=== PATIENT | male | born 1950 | race Caucasian/White ===

== ENCOUNTER 2018-02-07 19:39 | Emergency (ER) | payer MEDICARE, MEDICAID ==
[~2018-02-07] VITALS: Ht 203.2 cm; Wt 118.0 kg
[2018-02-07] MEDS ORDERED: SODIUM CHLORIDE 0.9% 1,000 ML IV ONE (21:17)
[2018-02-07] MEDS ORDERED: DIPHENHYDRAMINE 50MG/ML VIAL IV ONE (21:30)
[2018-02-07 23:25] LABS: BASOPHILS % 1.3 % (0.0-2.0); EOSINOPHILS % 11.7 % (0.0-5.0); HEMATOCRIT. 39.4 % (42.0-52.0); HEMOGLOBIN. 13.6 g/dL (14.0-18.0); MEAN CORPUSCULAR HEMOGLOBIN 32.7 pg (28.0-32.0); MEAN CORPUSCULAR VOLUME 95.1 fL (80.0-94.0); MEAN PLATELET VOLUME 8.3 fl (7.4-10.4); MONOCYTES % 11.4 % (2.0-8.0); NEUTROPHILS % 55.6 % (40.0-76.0); PLATELET 200 x1000/uL (130-400); RED BLOOD CELL COUNT 4.14 mill/uL (4.7-6.1); RED CELL DISTRIBUTION WIDTH 12.7 % (11.6-14.6)
[2018-02-07 23:28] LABS: CHLORIDE 108 mEq/L (98-107)
[2018-02-07 23:32] LABS: PARTIAL THROMBOPLASTIN TIME 28.3 sec (23.4-31.0); PROTHROMBIN TIME 10.4 sec (9.1-11.1)
[2018-02-08 00:59] LABS: CLARITY URINE CLEAR (CLEAR); COLOR URINE YELLOW (YELLOW); KETONES URINE NEGATIVE (NEGATIVE); LEUKOCYTE ESTERASE URINE 1+ (NEGATIVE); NITRITE URINE NEGATIVE (NEGATIVE); OCCULT BLOOD URINE NEGATIVE (NEGATIVE); PH URINE 5.5 (4.5-8.0); PROTEIN URINE NEGATIVE (NEGATIVE)
[2018-02-08 03:30] VITALS: BP 130/76
== END 2018-02-08 04:16 | disposition home or self-care (01) ==
LOC: ER 19:39
DX: R21 Rash and other nonspecific skin eruption (principal); N39.0 Urinary tract infection, site not specified
CPT/HCPCS: 36415; 80053; 81003; 85025; 85610; 85730; 96374; 99285; J1200; J7030; A4315

== ENCOUNTER 2019-04-08 16:21 | Emergency (ER) | payer MEDICARE, MEDICAID ==
[~2019-04-08] VITALS: Ht 203.2 cm; Wt 113.0 kg
[2019-04-08 21:42] VITALS: BP 130/78
== END 2019-04-08 21:56 | disposition home or self-care (01) ==
LOC: ER 16:21
DX: S62.615A Displaced fracture of proximal phalanx of left ring finger, initial encounter for closed fracture (principal); S62.617A Displaced fracture of proximal phalanx of left little finger, initial encounter for closed fracture; W19.XXXA Unspecified fall, initial encounter; Y93.9 Activity, unspecified; Y92.128 Other place in nursing home as the place of occurrence of the external cause; I69.398 Other sequelae of cerebral infarction; G31.9 Degenerative disease of nervous system, unspecified; G93.89 Other specified disorders of brain
CPT/HCPCS: 73130; 99284

== ENCOUNTER 2022-12-15 19:10 | Inpatient (IN) | payer MEDICARE, MEDICAID ==
[~2022-12-15] VITALS: Ht 203.2 cm; Wt 115.3 kg
[2022-12-15] MEDS ORDERED: ACETAMINOPHEN 325MG TABLET PO ONE (22:30)
[2022-12-15 23:51] LABS: CLARITY URINE CLOUDY (CLEAR); COLOR URINE DARK YELLOW (YELLOW); GLUCOSE URINE NEGATIVE (NEGATIVE); KETONES URINE TRACE (NEGATIVE); LEUKOCYTE ESTERASE URINE 2+ (NEGATIVE); NITRITE URINE POSITIVE (NEGATIVE); OCCULT BLOOD URINE 3+ (NEGATIVE); PH URINE 5.5 (4.5-8.0); PROTEIN URINE 1+ (NEGATIVE); SPECIFIC GRAVITY URINE 1.033 (1.005-1.030)
[2022-12-16] VITALS (7 sets, daily range): BP systolic 111–148; BP diastolic 71–92; PULSE 41–96; RESP 17–22; TEMP 97.6–99.7
[2022-12-16 00:01] LABS: HEMATOCRIT. 42.6 % (42.0-52.0); HEMOGLOBIN. 14.5 g/dL (14.0-18.0); MEAN CORPUSCULAR HEMOGLOBIN 32.8 pg (28.0-32.0); MEAN CORPUSCULAR HGB CONC 34.1 g/dL (31.0-37.0); MEAN CORPUSCULAR VOLUME 96.1 fL (80.0-94.0); PLATELET 178 x1000/uL (130-400); RED BLOOD CELL COUNT 4.43 mill/uL (4.7-6.1); RED CELL DISTRIBUTION WIDTH 12.5 % (11.6-14.6); WHITE BLOOD COUNT 20.9 x1000/uL (4.5-11.0)
[2022-12-16 00:03] LABS: DIFFERENTIAL COMMENT 1
[2022-12-16 00:08] LABS: BACTERIA URINE 3+
[2022-12-16 00:08] LABS: INR 1.1; PROTHROMBIN TIME 11.7 sec (9.6-11.0)
[2022-12-16 00:09] LABS: SQUAMOUS EPITHELIAL CELL URINE FEW /lpf (RARE/1+); WBC URINE 15-25 /hpf (0-2)
[2022-12-16 00:10] LABS: CHLORIDE 107 mEq/L (98-107); INDEX HEMOLYSI 1 (1-3); INDEX ICTERIC 1 (1-4); INDEX LIPEMIC 1 (1-3); POTASSIUM 3.5 mEq/L (3.5-5.1); SODIUM 137 mEq/L (136-145)
[2022-12-16 00:24] LABS: *AMPHETAMINES SCREEN URINE NEGATIVE (NEGATIVE); *BARBITURATES SCREEN URINE NEGATIVE (NEGATIVE); *BENZODIAZEPINES SCREEN URINE NEGATIVE (NEGATIVE); *COCAINE SCREEN URINE NEGATIVE (NEGATIVE); CANNABINOID URINE SCREEN NEGATIVE (NEGATIVE); ECSTASY MDMA SCREEN URINE NEGATIVE (NEGATIVE); METHADONE URINE SCREEN NEGATIVE (NEGATIVE); OPIATES URINE SCREEN NEGATIVE (NEGATIVE); PHENCYCLIDINE URINE SCREEN NEGATIVE (NEGATIVE)
[2022-12-16 00:30] LABS: ALANINE AMINOTRANSFERASE 37 IU/L (13-61); ALBUMIN 3.7 g/dL (3.4-5.0); ASPARTATE AMINOTRANSFERASE 113 IU/L (15-37); BILIRUBIN TOTAL 1.4 mg/dL (0.1-1.0); CALCIUM 9.1 mg/dL (8.5-10.1); CARBON DIOXIDE 22 mEq/L (21-32); CREATINE KINASE 2919 IU/L (39-308); CREATININE 1.2 mg/dL (0.6-1.3); ETHANOL BLOOD < 10 mg/dL (-10); GLUCOSE 133 mg/dL (70-105); TROPONIN I HIGH SENSITIVITY 28 ng/L (<78); UREA NITROGEN BLOOD 23 mg/dL (7-21)
[2022-12-16] MEDS ORDERED: CEFTRIAXONE 1GM PREMIX 50 ML IV NR (00:45)
[2022-12-16] MEDS ORDERED: SODIUM CHLORIDE 0.9% 1,000 ML IV ONE (01:15)
[2022-12-16 02:11] LABS: PLATELET ESTIMATE NORMAL
[2022-12-16] MEDS ORDERED: IPRATROPIUM/ALBUTEROL 0.5-3(2.5)MG/3ML NEB HHN PRN (05:45)
[2022-12-16] MEDS ORDERED: HYDROCODONE/ACETAMINOPHEN 5/325MG TABLET PO PRN (05:45)
[2022-12-16] MEDS ORDERED: ACETAMINOPHEN 325MG TABLET PO PRN (05:45)
[2022-12-16] MEDS ORDERED: AMAN100T PO (06:00)
[2022-12-16] MEDS ORDERED: NON FORMULARY PATIENT HOME MED XX SCH ×4 (06:00)
[2022-12-16] MEDS ORDERED: MULT-1146 PO (06:00)
[2022-12-16] MEDS ORDERED: SIMV-43 PO (06:00)
[2022-12-16] MEDS ORDERED: LAMO200T50 PO (06:00)
[2022-12-16] MEDS ORDERED: OLAN10TA6 PO (06:00)
[2022-12-16] MEDS ORDERED: FAMO-135 PO (06:00)
[2022-12-16] MEDS ORDERED: LEVO50TA8 PO (06:00)
[2022-12-16 06:42] LABS: HEMOGLOBIN. 13.7 g/dL (14.0-18.0); MEAN CORPUSCULAR HEMOGLOBIN 33.2 pg (28.0-32.0); MEAN CORPUSCULAR VOLUME 94.7 fL (80.0-94.0); MEAN PLATELET VOLUME 8.7 fl (7.4-10.4); PLATELET 172 x1000/uL (130-400); RED BLOOD CELL COUNT 4.12 mill/uL (4.7-6.1); RED CELL DISTRIBUTION WIDTH 12.5 % (11.6-14.6); WHITE BLOOD COUNT 18.6 x1000/uL (4.5-11.0)
[2022-12-16 07:16] LABS: DIFFERENTIAL COMMENT 1
[2022-12-16 07:37] LABS: CHLORIDE 109 mEq/L (98-107); INDEX HEMOLYSI 1 (1-3); INDEX ICTERIC 1 (1-4); INDEX LIPEMIC 1 (1-3); POTASSIUM 3.5 mEq/L (3.5-5.1); SODIUM 138 mEq/L (136-145)
[2022-12-16 07:45] LABS: CALCIUM 8.7 mg/dL (8.5-10.1); CARBON DIOXIDE 23 mEq/L (21-32); CREATININE 1.1 mg/dL (0.6-1.3); GLUCOSE 111 mg/dL (70-105); UREA NITROGEN BLOOD 23 mg/dL (7-21)
[2022-12-16] MEDS: IPRATROPIUM/ALBUTEROL 0.5-3(2.5)MG/3ML NEB HHN SCH ×3 (08:40→16:55)
[2022-12-16] MEDS ORDERED: LEVOTHYROXINE SODIUM 50MCG TABLET PO SCH (09:00)
[2022-12-16 09:16] LABS: PLATELET ESTIMATE NORMAL
[2022-12-16] MEDS: OLANZAPINE 5MG TABLET ODT PO SCH (10:38)
[2022-12-16] MEDS: AMANTADINE HCL 100 MG CAPSULE PO SCH (10:39)
[2022-12-16] MEDS: MULTIVITAMINS,THER W-MINERALS TABLET PO SCH (10:39)
[2022-12-16] MEDS: ENOXAPARIN 30MG/0.3ML SYR SUBCUT SCH ×2 (12:02→20:50)
[2022-12-16] MEDS: LAMOTRIGINE 100MG TABLET PO SCH ×2 (12:18→20:50)
[2022-12-16] MEDS: TAMSULOSIN HCL 0.4MG SR CAPSULE PO SCH (12:19)
[2022-12-16] MEDS ORDERED: NALOXONE HCL 0.4MG/ML VIAL IV PRN (15:15)
[2022-12-16] MEDS ORDERED: ICOS1CAP PO (18:24)
[2022-12-16] MEDS ORDERED: PERP16TA5 PO (18:24)
[2022-12-16] MEDS ORDERED: TRIH2TAB4 PO (18:24)
[2022-12-16] MEDS ORDERED: IBUP-2029 PO (18:24)
[2022-12-16] MEDS: FAMOTIDINE 20MG TABLET PO SCH (20:51)
[2022-12-16] MEDS: ATORVASTATIN CALCIUM 10MG TABLET PO SCH (20:51)
[2022-12-17] VITALS (12 sets, daily range): BP systolic 112–142; BP diastolic 69–83; PULSE 57–81; RESP 18–20; TEMP 96.8–97.6; O2SAT 93–95
[2022-12-17] MEDS: IPRATROPIUM/ALBUTEROL 0.5-3(2.5)MG/3ML NEB HHN SCH ×7 (00:07→21:09)
[2022-12-17] MEDS: CEFTRIAXONE 1,000 MG in DEXTROSE 5% WATER 50 ML IV SCH (00:53)
[2022-12-17] MEDS ORDERED: CEFTRIAXONE 1GM PREMIX 50 ML IV SCH (01:00)
[2022-12-17 06:54] LABS: BASOPHILS % 0.5 % (0.0-2.0); EOSINOPHILS % 1.8 % (0.0-5.0); HEMATOCRIT. 38.1 % (42.0-52.0); HEMOGLOBIN. 13.3 g/dL (14.0-18.0); LYMPHOCYTES % 10.2 % (20.0-50.0); MEAN CORPUSCULAR HEMOGLOBIN 33.4 pg (28.0-32.0); MEAN CORPUSCULAR HGB CONC 34.8 g/dL (31.0-37.0); MEAN CORPUSCULAR VOLUME 95.7 fL (80.0-94.0); MEAN PLATELET VOLUME 8.8 fl (7.4-10.4); MONOCYTES % 10.5 % (2.0-8.0); PLATELET 177 x1000/uL (130-400); RED BLOOD CELL COUNT 3.97 mill/uL (4.7-6.1); RED CELL DISTRIBUTION WIDTH 12.6 % (11.6-14.6); WHITE BLOOD COUNT 11.9 x1000/uL (4.5-11.0)
[2022-12-17 07:50] LABS: CALCIUM 8.3 mg/dL (8.5-10.1); CHLORIDE 110 mEq/L (98-107); INDEX HEMOLYSI 1 (1-3); INDEX ICTERIC 1 (1-4); INDEX LIPEMIC 1 (1-3); POTASSIUM 3.5 mEq/L (3.5-5.1); SODIUM 135 mEq/L (136-145)
[2022-12-17 07:54] LABS: CARBON DIOXIDE 25 mEq/L (21-32); GLUCOSE 110 mg/dL (70-105); UREA NITROGEN BLOOD 23 mg/dL (7-21)
[2022-12-17] MEDS: AMANTADINE HCL 100 MG CAPSULE PO SCH (08:12)
[2022-12-17] MEDS: MULTIVITAMINS,THER W-MINERALS TABLET PO SCH (08:12)
[2022-12-17] MEDS: TAMSULOSIN HCL 0.4MG SR CAPSULE PO SCH (08:13)
[2022-12-17] MEDS: LAMOTRIGINE 100MG TABLET PO SCH ×2 (08:13→21:28)
[2022-12-17] MEDS: LEVOTHYROXINE SODIUM 50MCG TABLET PO SCH (08:14)
[2022-12-17] MEDS: OLANZAPINE 5MG TABLET ODT PO SCH (08:15)
[2022-12-17] MEDS: ENOXAPARIN 30MG/0.3ML SYR SUBCUT SCH ×2 (08:16→21:29)
[2022-12-17] MEDS: FAMOTIDINE 20MG TABLET PO SCH (21:28)
[2022-12-17] MEDS: ATORVASTATIN CALCIUM 10MG TABLET PO SCH (21:28)
[2022-12-18] VITALS (11 sets, daily range): BP systolic 105–135; BP diastolic 54–93; PULSE 71–98; RESP 18–22; TEMP 97–98.1; O2SAT 97
[2022-12-18] MEDS: IPRATROPIUM/ALBUTEROL 0.5-3(2.5)MG/3ML NEB HHN SCH ×5 (00:29→15:43)
[2022-12-18] MEDS: CEFTRIAXONE 1,000 MG in DEXTROSE 5% WATER 50 ML IV SCH (01:29)
[2022-12-18] MEDS: LEVOTHYROXINE SODIUM 50MCG TABLET PO SCH (07:24)
[2022-12-18] MEDS: AMANTADINE HCL 100 MG CAPSULE PO SCH (08:11)
[2022-12-18] MEDS: MULTIVITAMINS,THER W-MINERALS TABLET PO SCH (08:11)
[2022-12-18] MEDS: LAMOTRIGINE 100MG TABLET PO SCH (08:12)
[2022-12-18] MEDS: OLANZAPINE 5MG TABLET ODT PO SCH (08:14)
[2022-12-18] MEDS: TAMSULOSIN HCL 0.4MG SR CAPSULE PO SCH (08:14)
[2022-12-18] MEDS: ENOXAPARIN 30MG/0.3ML SYR SUBCUT SCH (08:15)
== END 2022-12-18 18:00 | DRG 720 ==
LOC: ER 19:10 → EDBEDREQSVC 12-16 01:40 → EDBEDREQ 12-16 01:40 → 7WST 12-16 05:04
PROVIDERS: ADMIT Internal Medicine; ATTEND Internal Medicine
DX: A41.9 Sepsis, unspecified organism (principal); J96.00 Acute respiratory failure, unspecified whether with hypoxia or hypercapnia; J18.9 Pneumonia, unspecified organism; N39.0 Urinary tract infection, site not specified; F20.9 Schizophrenia, unspecified; K21.9 Gastro-esophageal reflux disease without esophagitis; F03.90 Unspecified dementia, unspecified severity, without behavioral disturbance, psychotic disturbance, mood disturbance, and anxiety; E03.9 Hypothyroidism, unspecified; Z86.73 Personal history of transient ischemic attack (TIA), and cerebral infarction without residual deficits; W18.30XA Fall on same level, unspecified, initial encounter; Y93.89 Activity, other specified; Y92.89 Other specified places as the place of occurrence of the external cause; Y99.8 Other external cause status
CPT/HCPCS: 36415; 71045; 80048; 80053; 80305; 80320; 81003; 82550; 83605; 84145; 84484; 85025; 86850; 86900; 87077; 87186; 93005; 94640; 99291; A6261; J0696; J1650; J7060; G0480

== ENCOUNTER 2023-01-06 22:34 | Emergency (ER) | payer MEDICARE, MEDICAID ==
[~2023-01-06] VITALS: Ht 193 cm; Wt 109.0 kg
[~2023-01-06 22:34] MED LIST: AMAN100T PO; FAMO-135 PO; IBUP-2029 PO; ICOS1CAP PO; LAMO200T50 PO; LEVO50TA8 PO; MULT-1146 PO; OLAN10TA6 PO; PERP16TA5 PO; SIMV-43 PO; TRIH2TAB4 PO
[2023-01-06 22:38] VITALS: O2SAT 96
[2023-01-06 23:07] LABS: EOSINOPHILS % 3.9 % (0.0-5.0); HEMATOCRIT. 38.5 % (42.0-52.0); HEMOGLOBIN. 13.4 g/dL (14.0-18.0); LYMPHOCYTES % 25.4 % (20.0-50.0); MEAN CORPUSCULAR HEMOGLOBIN 32.6 pg (28.0-32.0); MEAN CORPUSCULAR HGB CONC 34.8 g/dL (31.0-37.0); MEAN CORPUSCULAR VOLUME 93.7 fL (80.0-94.0); MEAN PLATELET VOLUME 8.3 fl (7.4-10.4); MONOCYTES % 10.1 % (2.0-8.0); NEUTROPHILS % 59.6 % (40.0-76.0); PLATELET 245 x1000/uL (130-400); RED BLOOD CELL COUNT 4.11 mill/uL (4.7-6.1); RED CELL DISTRIBUTION WIDTH 12.4 % (11.6-14.6); WHITE BLOOD COUNT 6.7 x1000/uL (4.5-11.0)
[2023-01-06 23:20] LABS: CHLORIDE 111 mEq/L (98-107); INDEX HEMOLYSI 1 (1-3); INDEX ICTERIC 1 (1-4); INDEX LIPEMIC 1 (1-3); POTASSIUM 3.7 mEq/L (3.5-5.1); SODIUM 141 mEq/L (136-145)
[2023-01-06 23:28] LABS: ALANINE AMINOTRANSFERASE 20 IU/L (13-61); ALBUMIN 3.4 g/dL (3.4-5.0); ASPARTATE AMINOTRANSFERASE 11 IU/L (15-37); BILIRUBIN TOTAL 0.4 mg/dL (0.1-1.0); CALCIUM 8.7 mg/dL (8.5-10.1); CARBON DIOXIDE 27 mEq/L (21-32); CREATININE 1.1 mg/dL (0.6-1.3); GLUCOSE 104 mg/dL (70-105); NT PRO B-TYPE NATRIURETIC PEP 73 pg/mL (5-125); PROTEIN TOTAL 7.1 g/dL (6.0-8.3); UREA NITROGEN BLOOD 14 mg/dL (7-21)
[2023-01-07] MEDS ORDERED: ONDANSETRON HCL 4MG/2ML INJ IV ONE (02:30)
[2023-01-07 06:14] LABS: CLARITY URINE CLOUDY (CLEAR); COLOR URINE YELLOW (YELLOW); GLUCOSE URINE NEGATIVE (NEGATIVE); KETONES URINE NEGATIVE (NEGATIVE); LEUKOCYTE ESTERASE URINE 3+ (NEGATIVE); NITRITE URINE POSITIVE (NEGATIVE); OCCULT BLOOD URINE NEGATIVE (NEGATIVE); PROTEIN URINE NEGATIVE (NEGATIVE); SPECIFIC GRAVITY URINE 1.011 (1.005-1.030)
[2023-01-07] MEDS ORDERED: CEFD300C3 MT (07:00)
[2023-01-07] MEDS ORDERED: CEFTRIAXONE SODIUM 1 G/VIAL IM ONE (07:00)
[2023-01-07] MEDS ORDERED: ONDA4TAB50 MT (07:00)
[2023-01-07] MEDS ORDERED: TOPUD MT (07:00)
[2023-01-07 07:27] LABS: BACTERIA URINE 3+; RBC URINE NONE SEEN /hpf (0-2); SQUAMOUS EPITHELIAL CELL URINE NONE SEEN /lpf (RARE/1+); WBC URINE 15-25 /hpf (0-2)
[2023-01-07 11:58] VITALS: BP 131/77; PULSE 76; RESP 18; TEMP 98.2
== END 2023-01-07 12:04 ==
LOC: ER 22:34
DX: R47.81 Slurred speech (principal); R53.1 Weakness; F03.90 Unspecified dementia, unspecified severity, without behavioral disturbance, psychotic disturbance, mood disturbance, and anxiety; K21.9 Gastro-esophageal reflux disease without esophagitis; E78.00 Pure hypercholesterolemia, unspecified; F20.9 Schizophrenia, unspecified; Z79.899 Other long term (current) drug therapy
CPT/HCPCS: 80053; 82962; 83880; 83605; 85025; 36415; 71045; 93005; 99285; 81003; 87086; 87186; 70450; 96372; 96374; J0696; J2405; Z7610 ×3

== ENCOUNTER 2025-03-22 16:42 | Inpatient (IN) | payer MEDICARE, MEDICAID ==
[~2025-03-22] VITALS: Ht 195.6 cm; Wt 119.9 kg
[~2025-03-22 16:42] MED LIST changes: -AMAN100T PO; +ASPI-1160 PO; +ATOR20TA65 PO; -FAMO-135 PO; +FAMO20TA8 PO; -IBUP-2029 PO; -ICOS1CAP PO; +LAMO100T16 PO; -LAMO200T50 PO; -OLAN10TA6 PO; +OLAN10TA72 PO; -PERP16TA5 PO; -SIMV-43 PO; +TAMS-54 PO; -TRIH2TAB4 PO; +[UNRECOGNIZED DRUG - CODE] PO
[2025-03-22 16:44] VITALS: O2SAT 95
[2025-03-22 17:45] LABS: BASOPHILS % 0.8 % (0.0-2.0); EOSINOPHILS % 3.4 % (0.0-5.0); HEMATOCRIT. 40.3 % (42.0-52.0); HEMOGLOBIN. 13.5 g/dL (14.0-18.0); LYMPHOCYTES % 13.0 % (20.0-50.0); MEAN PLATELET VOLUME 7.9 fl (7.4-10.4); MONOCYTES % 7.8 % (2.0-8.0); NEUTROPHILS % 75.0 % (40.0-76.0); PLATELET 226 x1000/uL (130-400); RED BLOOD CELL COUNT 4.33 mill/uL (4.7-6.1); RED CELL DISTRIBUTION WIDTH 14.0 % (11.6-14.6)
[2025-03-22 17:53] LABS: CREATININE 1.2 mg/dL (0.6-1.3); UREA NITROGEN BLOOD 18 mg/dL (9-23)
[2025-03-22 17:55] LABS: ASPARTATE AMINOTRANSFERASE 15 IU/L (<34); BILIRUBIN DIRECT 0.2 mg/dL (<=3.0)
[2025-03-22 17:56] LABS: BILIRUBIN TOTAL 0.5 mg/dL (0.1-1.0); PROTEIN TOTAL 6.7 g/dL (6.0-8.3)
[2025-03-22] MEDS: CEFTRIAXONE 1GM/50ML 50 ML IV ONE (19:19)
[2025-03-22] MEDS: SODIUM CHLORIDE 0.9% (SEPSIS BOLUS) IV ONE (19:19)
[2025-03-22 19:30] LABS: INR 1.0
[2025-03-22 19:31] LABS: CLARITY URINE CLEAR (CLEAR); GLUCOSE URINE NEGATIVE (NEGATIVE); KETONES URINE NEGATIVE (NEGATIVE); LEUKOCYTE ESTERASE URINE 1+ (NEGATIVE); NITRITE URINE POSITIVE (NEGATIVE); OCCULT BLOOD URINE NEGATIVE (NEGATIVE); PH URINE 6.0 (4.5-8.0); PROTEIN URINE NEGATIVE (NEGATIVE); SPECIFIC GRAVITY URINE 1.016 (1.005-1.030); UROBILINOGEN URINE 1.0 E.U./dL (0.2-1.0)
[2025-03-22 19:38] LABS: CREATININE 1.2 mg/dL (0.6-1.3); UREA NITROGEN BLOOD 16.0 mg/dL (9-23)
[2025-03-22 19:39] LABS: TROPONIN I HIGH SENSITIVITY 4 ng/L (3.0-53)
[2025-03-22 20:09] LABS: COLOR URINE YELLOW (YELLOW)
[2025-03-22 20:11] LABS: RBC URINE NONE SEEN /hpf (0-2); WBC URINE 0-2 /hpf (0-2)
[2025-03-22 20:15] LABS: BACTERIA URINE NONE SEEN
[2025-03-22] MEDS: ONDANSETRON HCL 4MG/2ML INJ IV ONE (21:45)
[2025-03-22] MEDS ORDERED: ONDANSETRON HCL 4MG/2ML INJ IV PRN (22:45)
[2025-03-22] MEDS ORDERED: CLONIDINE 0.1MG TABLET PO PRN (22:45)
[2025-03-22] MEDS ORDERED: ACETAMINOPHEN 325MG TABLET PO PRN (22:45)
[2025-03-22] MEDS ORDERED: DOCUSATE SODIUM 100MG CAPSULE PO PRN (22:45)
[2025-03-22] MEDS ORDERED: IPRATROPIUM/ALBUTEROL 0.5-3(2.5)MG/3ML NEB HHN PRN (22:45)
[2025-03-23] MEDS: IPRATROPIUM/ALBUTEROL 0.5-3(2.5)MG/3ML NEB HHN ONE (01:08)
[2025-03-23] MEDS: DEXT 5%/0.45% NACL 1000ML 1,000 ML IV SCH (02:14)
[2025-03-23] MEDS: LEVOTHYROXINE SODIUM 50MCG TABLET PO SCH (06:29)
[2025-03-23 07:34] LABS: CREATININE 1.0 mg/dL (0.6-1.3)
[2025-03-23 07:35] LABS: TRIGLYCERIDE 87 mg/dL (0-150); UREA NITROGEN BLOOD 11 mg/dL (9-23)
[2025-03-23 07:36] LABS: LDL CHOLESTEROL 34 mg/dL (5-100); T4 FREE 1.13 ng/dL (0.89-1.76)
[2025-03-23 08:00] VITALS: BP 132/82; PULSE 56; RESP 18; TEMP 36.6; O2SAT 97
[2025-03-23 08:02] LABS: BASOPHILS % 1.0 % (0.0-2.0); EOSINOPHILS % 4.4 % (0.0-5.0); HEMATOCRIT. 39.2 % (42.0-52.0); HEMOGLOBIN. 13.2 g/dL (14.0-18.0); LYMPHOCYTES % 21.0 % (20.0-50.0); MEAN PLATELET VOLUME 8.8 fl (7.4-10.4); MONOCYTES % 10.3 % (2.0-8.0); NEUTROPHILS % 63.3 % (40.0-76.0); PLATELET 200 x1000/uL (130-400); RED BLOOD CELL COUNT 4.16 mill/uL (4.7-6.1); RED CELL DISTRIBUTION WIDTH 14.0 % (11.6-14.6)
[2025-03-23 08:10] LABS: HEPATITIS C AB NON REACTIVE (Neg) (Negative)
[2025-03-23] MEDS: PANTOPRAZOLE SODIUM 40 MG/VIAL IV SCH (08:42)
[2025-03-23] MEDS: LAMOTRIGINE 100MG TABLET PO SCH (08:42)
[2025-03-23] MEDS: ASPIRIN 81MG TABLET PO SCH (08:42)
[2025-03-23] MEDS: AMANTADINE 100MG CAPSULE PO SCH (08:42)
[2025-03-23] MEDS: TAMSULOSIN HCL 0.4MG SR CAPSULE PO SCH (08:43)
[2025-03-23 12:00] VITALS: BP 150/91; PULSE 57; RESP 18; TEMP 36.4; O2SAT 99
[2025-03-23 16:00] VITALS: BP 114/57; PULSE 61; RESP 17; TEMP 36.9; O2SAT 97
[2025-03-23 20:00] VITALS: BP 119/63; PULSE 63; RESP 18; TEMP 36.3; O2SAT 94
[2025-03-23] MEDS: ATORVASTATIN CALCIUM 20MG TABLET PO SCH (20:29)
[2025-03-23] MEDS: PIPERACILLIN/TAZO 3.375G/50ML 50 ML IV SCH (22:12)
[2025-03-24] VITALS: BP 121/62; PULSE 67; RESP 18; TEMP 36.5; O2SAT 97
[2025-03-24 04:00] VITALS: BP 114/72; PULSE 72; RESP 18; TEMP 35.9; O2SAT 96
[2025-03-24 06:44] LABS: BASOPHILS % 1.2 % (0.0-2.0); EOSINOPHILS % 3.8 % (0.0-5.0); HEMATOCRIT. 36.8 % (42.0-52.0); HEMOGLOBIN. 12.7 g/dL (14.0-18.0); LYMPHOCYTES % 16.7 % (20.0-50.0); MEAN PLATELET VOLUME 8.4 fl (7.4-10.4); MONOCYTES % 9.6 % (2.0-8.0); NEUTROPHILS % 68.7 % (40.0-76.0); PLATELET 218 x1000/uL (130-400); RED BLOOD CELL COUNT 3.94 mill/uL (4.7-6.1); RED CELL DISTRIBUTION WIDTH 13.6 % (11.6-14.6)
[2025-03-24 07:27] LABS: CREATININE 1.0 mg/dL (0.6-1.3); UREA NITROGEN BLOOD 12 mg/dL (9-23)
[2025-03-24 07:29] LABS: PHOSPHORUS 3.5 mg/dL (2.5-4.9)
[2025-03-24 08:00] VITALS: BP 116/79; PULSE 78; RESP 18; TEMP 36.8; O2SAT 99
[2025-03-24 12:00] VITALS: BP 126/86; PULSE 77; RESP 18; TEMP 36.7; O2SAT 96
[2025-03-24 16:00] VITALS: BP 130/81; PULSE 70; RESP 18; TEMP 36.7; O2SAT 95
[2025-03-24 20:00] VITALS: BP 150/94; PULSE 70; RESP 18; TEMP 36.6; O2SAT 97
[2025-03-25] VITALS: BP 117/48; PULSE 70; RESP 18; TEMP 36.3; O2SAT 96
[2025-03-25 07:19] LABS: CREATININE 1.1 mg/dL (0.6-1.3); UREA NITROGEN BLOOD 13 mg/dL (9-23)
[2025-03-25 07:30] LABS: BASOPHILS % 0.8 % (0.0-2.0); EOSINOPHILS % 6.0 % (0.0-5.0); HEMATOCRIT. 41.1 % (42.0-52.0); HEMOGLOBIN. 13.9 g/dL (14.0-18.0); LYMPHOCYTES % 27.8 % (20.0-50.0); MEAN PLATELET VOLUME 8.7 fl (7.4-10.4); MONOCYTES % 11.5 % (2.0-8.0); NEUTROPHILS % 53.9 % (40.0-76.0); PLATELET 232 x1000/uL (130-400); RED BLOOD CELL COUNT 4.41 mill/uL (4.7-6.1); RED CELL DISTRIBUTION WIDTH 14.0 % (11.6-14.6)
[2025-03-25 08:00] VITALS: BP 118/71; PULSE 65; RESP 20; TEMP 36.4; O2SAT 97
[2025-03-25] MEDS: OLANZAPINE 5MG TABLET PO SCH (08:33)
[2025-03-25 12:00] VITALS: BP 107/57; PULSE 89; RESP 18; TEMP 36.3; O2SAT 98
[2025-03-25] MEDS ORDERED: SULF1TAB48 MT (12:39)
[2025-03-25 16:00] VITALS: BP 118/80; PULSE 64; RESP 18; TEMP 36.3; O2SAT 98
[2025-03-25 20:00] VITALS: BP 100/53; PULSE 65; RESP 18; TEMP 36.6; O2SAT 99
[2025-03-26] VITALS: BP 117/67; PULSE 65; RESP 18; TEMP 36.6; O2SAT 95
[2025-03-26 04:00] VITALS: BP 120/55; PULSE 74; RESP 18; TEMP 36.4; O2SAT 93
[2025-03-26 08:00] VITALS: BP 95/62; PULSE 78; RESP 18; TEMP 36.3; O2SAT 97
[2025-03-26 12:00] VITALS: BP 120/75; PULSE 78; RESP 18; TEMP 36.3; O2SAT 98
[2025-03-26 12:54] VITALS: BP 123/75; PULSE 78; RESP 18; TEMP 98.3
== END 2025-03-26 13:18 | DRG 71 ==
LOC: ER 16:42 → EDBEDREQ 22:38 → EDBEDREQTM 03-23 00:35 → EDBEDREQ 03-23 00:35 → ENRESERV 03-23 01:07 → 5WST 03-23 01:49
PROVIDERS: ADMIT Internal Medicine; ATTEND Internal Medicine
DX: G93.41 Metabolic encephalopathy (principal); J44.1 Chronic obstructive pulmonary disease with (acute) exacerbation; G20.C Parkinsonism, unspecified; N39.0 Urinary tract infection, site not specified; D64.9 Anemia, unspecified; I10 Essential (primary) hypertension; E03.9 Hypothyroidism, unspecified; F01.50 Vascular dementia, unspecified severity, without behavioral disturbance, psychotic disturbance, mood disturbance, and anxiety; F20.9 Schizophrenia, unspecified; R47.1 Dysarthria and anarthria; E78.00 Pure hypercholesterolemia, unspecified; K21.9 Gastro-esophageal reflux disease without esophagitis; Z79.82 Long term (current) use of aspirin; Z79.899 Other long term (current) drug therapy; Z86.711 Personal history of pulmonary embolism; Z86.73 Personal history of transient ischemic attack (TIA), and cerebral infarction without residual deficits
CPT/HCPCS: 36415; 71045; 80048; 80061; 80076; 81003; 82140; 82550; 83605; 83735; 84100; 84145; 84439; 84443; 84484; 85025; 86705; 87340; 93005; 93970; 96365; 97165; 99291; J0696; J2470; J2543; J7030